=== PATIENT | female | born 1970 | race Caucasian/White ===

== ENCOUNTER 2018-07-31 11:35 | Emergency (ER) | payer BC, OTHER ==
[2018-07-31 11:42] VITALS: RESP 20; TEMP 98.3
[2018-07-31] MEDS ORDERED: PROPARACAINE 0.5% OPHTH DROPS 15 ML BTL LEFT EYE STA (12:56)
[2018-07-31] MEDS ORDERED: KETOROLAC 30 MG/ML 1 ML VIAL IM STA (14:40)
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
[2018-07-31 15:10] VITALS: BP 108/78; PULSE 73
== END 2018-07-31 15:05 | disposition home or self-care (01) ==
LOC: EC 11:35
DX: S80.02XA Contusion of left knee, initial encounter (principal); S80.01XA Contusion of right knee, initial encounter; S40.021A Contusion of right upper arm, initial encounter; S05.02XA Injury of conjunctiva and corneal abrasion without foreign body, left eye, initial encounter; R51 Headache; F43.9 Reaction to severe stress, unspecified; J45.909 Unspecified asthma, uncomplicated; F41.0 Panic disorder [episodic paroxysmal anxiety]; F32.9 Major depressive disorder, single episode, unspecified; F17.200 Nicotine dependence, unspecified, uncomplicated; Z79.899 Other long term (current) drug therapy; Z79.1 Long term (current) use of non-steroidal anti-inflammatories (NSAID); Z88.6 Allergy status to analgesic agent; Z88.5 Allergy status to narcotic agent; Z88.1 Allergy status to other antibiotic agents; Z88.2 Allergy status to sulfonamides; Z88.8 Allergy status to other drugs, medicaments and biological substances; Y04.0XXA Assault by unarmed brawl or fight, initial encounter
CPT/HCPCS: 99283; 96372; J1885

== ENCOUNTER 2018-11-21 12:55 | Emergency (ER) | payer OTHER ==
[2018-11-21 13:26] VITALS: BP 114/75; PULSE 79; RESP 18; TEMP 97.6
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
[2018-11-21 14:52] LABS: Appearance,Urine Cloudy (Clear); Bacteria,Urine Rare /hpf; Bilirubin,Urine Negative (Negative); Blood,Urine Small (Negative); Budding Yeast,Urine Moderate /hpf; Color,Urine Yellow; Glucose,Urine (UA) Negative (Negative); Ketones,Urine Negative (Negative); Leukocyte Esterase,Urine Large (Negative); Nitrite,Urine Positive (Negative); Protein,Urine 1+ (Negative); RBC,Urine 16 /hpf (0-5); Specific Gravity,Urine 1.013 (1.001-1.035); Squamous Epithelial Cell,Urine 11 /hpf (0-4); Urobilinogen,Urine <2.0 mg/dL (<2.0)
== END 2018-11-21 15:34 | disposition home or self-care (01) ==
LOC: EC 12:55
DX: S60.221A Contusion of right hand, initial encounter (principal); N39.0 Urinary tract infection, site not specified; J45.909 Unspecified asthma, uncomplicated; G40.909 Epilepsy, unspecified, not intractable, without status epilepticus; F32.9 Major depressive disorder, single episode, unspecified; F41.0 Panic disorder [episodic paroxysmal anxiety]; Z87.891 Personal history of nicotine dependence; Z79.899 Other long term (current) drug therapy; Z79.1 Long term (current) use of non-steroidal anti-inflammatories (NSAID); Z88.1 Allergy status to other antibiotic agents; Z88.5 Allergy status to narcotic agent; Z88.6 Allergy status to analgesic agent; W50.0XXA Accidental hit or strike by another person, initial encounter; Y92.89 Other specified places as the place of occurrence of the external cause
CPT/HCPCS: 81001; 81025; 87086; 99283

== ENCOUNTER 2019-01-26 19:42 | Emergency (ER) | payer OTHER ==
[2019-01-26 20:01] VITALS: BP 124/76; PULSE 91; RESP 16; TEMP 98.9
[2019-01-26] MEDS ORDERED: KETOROLAC 30 MG/ML 1 ML VIAL IM STA (20:27)
[2019-01-26] MEDS ORDERED: DIPH,PERTUS(ACELL)TETVAC-LF 0.5 ML VIAL IM ONE (20:27)
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
[2019-01-26] MEDS ORDERED: KETOROLAC 60 MG/2 ML VIAL IM STA (21:47)
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
== END 2019-01-26 22:22 | disposition home or self-care (01) ==
LOC: EC 19:42
DX: S01.512A Laceration without foreign body of oral cavity, initial encounter (principal); M25.511 Pain in right shoulder; J45.909 Unspecified asthma, uncomplicated; G40.909 Epilepsy, unspecified, not intractable, without status epilepticus; F41.9 Anxiety disorder, unspecified; F32.9 Major depressive disorder, single episode, unspecified; Z87.891 Personal history of nicotine dependence; Z79.1 Long term (current) use of non-steroidal anti-inflammatories (NSAID); Z79.899 Other long term (current) drug therapy; Z88.6 Allergy status to analgesic agent; Z88.5 Allergy status to narcotic agent; Z88.1 Allergy status to other antibiotic agents; Z88.2 Allergy status to sulfonamides; Z23 Encounter for immunization; Y04.8XXA Assault by other bodily force, initial encounter
CPT/HCPCS: 73030; 72125; 70486; 70450; 90715; 99284; 96372; 90471; J1885

== ENCOUNTER → 2020-04-30 | Outpatient (CLI) | payer OTHER ==
--- NOTE | 2020-04-30 09:03 | US ---
EXAMINATION TYPE: US abdomen complete DATE OF EXAM: 04/30/2020 COMPARISON: NONE CLINICAL HISTORY: 49-year-old female R10.11 right upper quadrant pain. Abdominal bloating; patient st ated has stomach ulcers, diarrhea and constipation TECHNIQUE: Multiple sonographic images of the abdomen are obtained. FINDINGS: EXAM MEASUREMENTS: Liver Length: 15.9 cm Gallbladder Wall: 0.3 cm CBD: 6.5 mm Spleen: 9.7 cm Right Kidney: 10.1 x 4.7 x 4.0 cm Left Kidney: 10.1 x 6.2 x 5.3 cm Pancreas: Suboptimal visualization of the pancreatic tail due to shadowing from bowel gas. Visualized portions show no gross abnormal Liver: Very slightly echogenic and slightly coarsened echotexture. No focal lesion seen. Gallbladder : wnl Evidence for sonographic Mcgowan's sign: no CBD: Borderline to mildly dilated Spleen: wnl Kidneys: No hydronephrosis. Upper IVC: wnl Abd Aorta: size is wnl, irregular intimal wall thickening and calcification is noted mid and distall y compatible with atherosclerosis. IMPRESSION: 1. Bile duct is borderline to mildly dilated at 6.5 mm. Correlate with alkaline phosphatase and bili levels to exclude early biliary obstruction. 2. Suspect mild fatty infiltration of the liver.
== END | disposition home or self-care (01) ==
LOC: RADUSWWP 06:57
PROVIDERS: ATTEND Internal Medicine
DX: R10.11 Right upper quadrant pain (principal)
CPT/HCPCS: 76700

== ENCOUNTER → 2020-07-10 | Outpatient (CLI) | payer OTHER ==
--- NOTE | 2020-07-16 10:01 | MM ---
Reason for exam: screening (asymptomatic). Last mammogram was performed 7 years and 1 month ago. History: Patient has history of other cancer at age 21. Family history of premenopausal breast cancer in sister at age 43 and breast cancer in maternal grandmother. Benign US left guided VAD of the left breast, March 09, 2011. Physical Findings: A clinical breast exam by your physician is recommended on an annual basis and results should be correlated with mammographic findings. MG Screening Mammo w CAD Bilateral CC and MLO view(s) were taken. Prior study comparison: June 18, 2013, bilateral digital screening mammo w/CAD. The breast tissue is heterogeneously dense. This may lower the sensitivity of mammography. No significant changes when compared with prior studies. ASSESSMENT: Benign, BI-RAD 2 RECOMMENDATION: Routine screening mammogram of both breasts in 1 year.
== END | disposition home or self-care (01) ==
LOC: RADMAMWWP 06:58
PROVIDERS: ATTEND Internal Medicine
DX: Z12.31 Encounter for screening mammogram for malignant neoplasm of breast (principal)
CPT/HCPCS: 77067

== ENCOUNTER → 2020-07-24 | Outpatient (CLI) | payer OTHER ==
--- NOTE | 2020-07-24 09:55 | NM ---
Nuclear medicine hepatobiliary scan. HISTORY: Pain. DOSAGE: The patient seated 8 ounces of ensure plus and 4.8 mCi of Technetium 99m Choletec. FINDINGS: There is normal hepatic extraction. The gallbladder is seen by 35 minutes. There is bilia ry to bowel clearance by 50 minutes. Ejection fraction is 86%. IMPRESSION: 1. No diagnostic evidence of disc. 2. Ejection fraction of 86% can occasionally be associated with hyperdynamic gallbladder.
== END | disposition home or self-care (01) ==
LOC: RADNMMAIN 06:53
PROVIDERS: ATTEND Internal Medicine
DX: R10.11 Right upper quadrant pain (principal)
CPT/HCPCS: 78226; A9537

== ENCOUNTER → 2020-10-06 | Outpatient (CLI) | payer OTHER ==
[2020-10-06 09:57] LABS: Basophils % (A) 0 %; Eosinophils # (A) 0.2 k/uL (0-0.7); Eosinophils % (A) 3 %; HCT 42.1 % (34.0-46.0); Lymphocytes # (A) 1.9 k/uL (1.0-4.8); Lymphocytes % (A) 26 %; MCHC 33.3 g/dL (31.0-37.0); MCV 96.1 fL (80.0-100.0); Mean Platelet Volume 6.7; Monocytes # (A) 0.3 k/uL (0-1.0); Monocytes % (A) 4 %; Neutrophils # (A) 4.8 k/uL (1.3-7.7); Neutrophils % (A) 67 %; Platelet Count 287 k/uL (150-450); RBC 4.38 m/uL (3.80-5.40); RDW 13.1 % (11.5-15.5); WBC 7.2 k/uL (3.8-10.6)
[2020-10-06 15:54] LABS: African American GFR (CKD) 85.8 (60.0-200.0); Albumin 4.5 g/dL (3.80-4.90); Albumin/Globulin Ratio 2.37 (1.60-3.17); Anion Gap 4.1 mmol/L (4.00-12.00); BUN/Creat Ratio 8.89 Ratio (12.00-20.00); Calcium 9.7 mg/dL (8.7-10.3); Carbon Dioxide 25.9 mmol/L (21.6-31.8); Chol/HDL Ratio 5.07; Globulin 1.9 g/dL (1.6-3.3); LDL Cholesterol,Calculated 170.6 mg/dL (0.0-131.0); Potassium 4.4 mmol/L (3.5-5.5); T4, Free (Free Thyroxine) 0.8 ng/dL (0.80-1.80); Total Bilirubin 0.4 mg/dL (0.2-1.2); Total Protein 6.4 g/dL (6.2-8.2); VLDL Calculation 53.4 mg/dL (5.00-40.00)
[2020-10-06 17:43] LABS: Lithium 0.6 mmol/L (0.5-1.2)
[2020-10-06 18:46] LABS: Hemoglobin A1C 5.2 % (4.0-6.0)
== END | disposition home or self-care (01) ==
LOC: LABWHC1 09:09
PROVIDERS: ATTEND Nurse Practitioner Psychiatric/Mental Health
DX: F31.5 Bipolar disorder, current episode depressed, severe, with psychotic features (principal); F43.10 Post-traumatic stress disorder, unspecified
CPT/HCPCS: 36415; 80053; 80061; 80178; 83036; 84439; 84443; 85025

== ENCOUNTER → 2020-11-10 | Outpatient (CLI) | payer OTHER ==
--- NOTE | 2020-11-10 15:31 | XR ---
EXAMINATION TYPE: XR chest 2V DATE OF EXAM: 11/10/2020 COMPARISON: Chest x-ray 04/29/2014 HISTORY: J 44.9, dyspnea and shortness of breath TECHNIQUE: Frontal and lateral views of the chest are obtained. FINDINGS: There is no focal air space opacity, pleural effusion, or pneumothorax seen. The cardiac silhouette size is within normal limits. The osseous structures are intact, there is thoracic spond ylosis. IMPRESSION: No acute cardiopulmonary process.
[2020-11-10 18:58] LABS: Basophils # (A) 0.03 X 10*3/uL (0.00-0.10); Basophils % (A) 0.4 %; Eosinophils # (A) 0.15 X 10*3/uL (0.04-0.35); Eosinophils % (A) 2.2 %; HCT 40.5 % (37.2-46.3); HGB 13.3 g/dL (12.0-15.0); Lymphocytes # (A) 1.98 X 10*3/uL (0.90-5.00); Lymphocytes % (A) 29.6 %; MCH 32.5 pg (27.0-32.0); MCHC 32.8 g/dL (32.0-37.0); Mean Platelet Volume 9.9 fL (9.5-12.2); Monocytes # (A) 0.32 X 10*3/uL (0.20-1.00); Monocytes % (A) 4.8 %; Neutrophils # (A) 4.19 X 10*3/uL (1.80-7.70); Neutrophils % (A) 62.7 %; Platelet Count 263 X 10*3/uL (140-440); RBC 4.09 X 10*6/uL (4.10-5.20); RDW 13.8 % (11.5-14.5); WBC 6.69 X 10*3/uL (4.50-10.00)
[2020-11-11 10:29] LABS: Alt. alternata IgE Class CLASS 0; Alternaria alternata IgE <0.10 kU/L (<0.10); Asperg. fumagatus IgE <0.10 kU/L (<0.10); Asperg. fumagatus IgE Class CLASS 0; Candida albicans IgE Class CLASS 0; Clad herbarum IgE <0.10 kU/L (<0.10); Clad herbarum IgE Class CLASS 0; Latex IgE Class CLASS 0; Mucor racemosus IgE <0.10 kU/L (<0.10); Mucor racemosus IgE Class CLASS 0; Penicillium chrysogenum IgE <0.10 kU/L (<0.10); Penicillium chrysogenum IgE Cl CLASS 0
[2020-11-12 09:28] LABS: Alpha 1 Anti-Trypsin 97 mg/dL (90 - 200); Alpha-1-Antitrypsin Phenotype MS
== END | disposition home or self-care (01) ==
LOC: LABWHC1 13:08
PROVIDERS: ATTEND Internal Medicine Sleep Medicine
DX: J44.9 Chronic obstructive pulmonary disease, unspecified (principal); E88.01 Alpha-1-antitrypsin deficiency; B44.81 Allergic bronchopulmonary aspergillosis
CPT/HCPCS: 36415; 71046; 82103; 82104; 85025; 86003; 86317

== ENCOUNTER 2020-12-15 08:05 | Emergency (ER) | payer OTHER ==
[2020-12-15 08:11] VITALS: RESP 18
[2020-12-15] MEDS ORDERED: guaiFENesin-DM 600/30MG 1 EACH TAB.ER.12H PO STA (08:38)
--- NOTE | 2020-12-15 08:40 | ED ---
URI HPI - General Chief Complaint: Upper Respiratory Infection Stated Complaint: SOB,Cough,Fever Time Seen by Provider: 12/15/20 08:21 Source: patient Mode of arrival: wheelchair Limitations: no limitations - History of Present Illness Initial Comments: 50 year-old female patient presents to the emergency department for evaluation of cough, shortness of breath, fevers, and nasal congestion. Patient states that symptoms started 2 days ago and have been worsening. Fevers have been around 100F. States she isn't taking Tylenol no other medications. 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 She has not yet been vaccinated for COVID-19. She does report nausea and vomiting. Denies any diarrhea. Patient denies any recent rash, chest pain, abdominal pain, back pain, numbness, tingling, dizziness, weakness, hematuria, dysuria, urinary urgen cy, urinary frequency, headache, visual changes, or any other complaints. - Related Data Home Medications Medication Instructions Recorded Confirmed Desvenlafaxine [Pristiq ER] 100 mg PO DAILY 07/31/18 12/15/20 [place] Carbonate [[place] 900 mg PO DAILY 07/31/18 12/15/20 Carbonate ER] Albuterol Sulfate [Proair Hfa] 1 puff INHALATION RT-Q4H PRN 12/15/20 12/15/20 Famotidine 20 mg PO DAILY 12/15/20 12/15/20 Fluticasone/Umeclidin/Vilanter 1 puff INHALATION RT-DAILY 12/15/20 12/15/20 [Trelerigoberto Ellipta 200-62.5-25] Oxybutynin Chloride [Ditropan XL] 10 mg PO DAILY 12/15/20 12/15/20 Topiramate [Trokendi Xr] 200 mg PO DAILY 12/15/20 12/15/20 guanFACINE [Tenex] 1 mg PO BID 12/15/20 12/15/20 Allergies Allergy/AdvReac Type Severity Reaction Status Date / Time hydrocodone bitartrate Allergy Unknown Verified 12/15/20 09:42 [From [place]] hydromorphone HCl Allergy Unknown Verified 12/15/20 09:42 [From Dilaudid] morphine Allergy Unknown Verified 12/15/20 09:42 nitrofurantoin Allergy Unknown Verified 12/15/20 09:42 [From Macrobid] nitrofurantoin Allergy Unknown Verified 12/15/20 09:42 macrocrystalline [From Macrobid] oxycodone HCl [From Percocet] Allergy Unknown Verified 12/15/20 09:42 Sulfa (Sulfonamide Allergy Unknown Verified 12/15/20 09:42 Antibiotics) Review of Systems ROS Statement: Those systems with pertinent positive or pertinent negative responses have been documented in the HPI. ROS Other: All systems not noted in ROS Statement are negative. Past Medical History Past Medical History: Asthma, Seizure Disorder Additional Past Medical History / Comment(s): Alpha 1 antitrypsin disease; immunodeficiency History of Any Multi-Drug Resistant Organisms: None Reported Past Surgical History: Bladder Surgery, Breast Surgery, Hysterectomy Past Psychological History: Anxiety, Depression, Panic Disorder Smoking Status: Former smoker Past Alcohol Use History: Rare Past Drug Use History: Marijuana General Exam Limitations: no limitations General appearance: alert, in no apparent distress, other (This is a well- developed, well-nourished adult female patient in no acute distress. Vital signs upon presentation are temperature 97.4F, pulse 74, respirations 18, blood pressure 120/83, pulse ox 100% on room air.) Eye exam: Present: normal appearance, PERRL, EOMI. Absent: scleral icterus, conjunctival injection, periorbital swelling ENT exam: Present: normal exam, normal oropharynx, mucous membranes moist Respiratory exam: Present: normal lung sounds bilaterally. Absent: respiratory distress, wheezes, rales, rhonchi, stridor Cardiovascular Exam: Present: regular rate, normal rhythm, normal heart sounds. Absent: systolic murmur, diastolic murmur, rubs, gallop, clicks GI/Abdominal exam: Present: soft, normal bowel sounds. Absent: distended, tenderness, guarding, rebound, rigid Neurological exam: Present: alert, oriented X3, CN II-XII intact Psychiatric exam: Present: normal affect, normal mood Skin exam: Present: warm, dry, intact, normal color. Absent: rash Course Vital Signs 12/15/20 12/15/20 12/15/20 08:09 09:11 10:11 Temperature 97.4 F L 97.9 F Pulse Rate 74 87 Respiratory 18 18 18 Rate Blood Pressure 120/83 127/108 O2 Sat by Pulse 100 99 Oximetry 12/15/20 11:00 Temperature Pulse Rate 87 Respiratory 18 Rate Blood Pressure 131/102 O2 Sat by Pulse 99 Oximetry Medical Decision Making - Medical Decision Making 50-year-old female patient presents to the emergency department today for evaluation of cough and shortness of breath. Physical examination is unremarkable. She is coughing. Lungs are clear to auscultation. She tested positive for Covid. Chest x-ray was negative. Patient does have history of immune deficiency I discussed this with her physician Dr. Estevez who thinks it is a good idea for her to receive bamlanivimab. I did discuss the medication with the patient, went over risks versus benefits. She does agree to receive the medication. She will be discharged home to follow-up with primary care ph ysician for recheck in 1-2 days. Return parameters discussed in detail. She verbalizes understanding and agrees with this plan. My attending is Dr. Ace. - Lab Data Lab Results 12/15/20 Range/Units 09:11 Coronavirus (PCR) Detected A (Not Detectd) - Radiology Data Radiology results: report reviewed, image reviewed One view x-ray of the chest is obtained. Report was reviewed in its entirety. Impression by Dr. Aburto shows no acute process. Disposition Clinical Impression: COVID-19 Disposition: HOME SELF-CARE Condition: Good Instructions (If sedation given, give patient instructions): Coronavirus Disease 2019 (COVID-19) Additional Instructions: Increase fluids. Rest. Follow-up with your primary care physician for recheck in 1-2 days. Return to the emergency department for any new, worsening, or concerning symptoms. Is patient prescribed a controlled substance at d/c from ED?: No Referrals: Marjorie Meehan MD [Primary Care Provider] - 1-2 days
--- NOTE | 2020-12-15 09:34 | XR ---
EXAMINATION TYPE: XR chest 1V DATE OF EXAM: 12/15/2020 COMPARISON: Prior chest x-ray 11/10/2020 HISTORY: Cough and shortness of breath TECHNIQUE: Single frontal view of the chest is obtained. FINDINGS: There is no focal air space opacity, pleural effusion, or pneumothorax seen. The cardiac silhouette size is within normal limits. The osseous structures are intact. IMPRESSION: No acute process.
[2020-12-15] MEDS ORDERED: LORazepam 1 MG TAB PO STA (09:58)
[2020-12-15 10:31] VITALS: TEMP 97.9
[2020-12-15] MEDS ORDERED: BAMLANIVIMAB 700 MG in SODIUM CHLORIDE 0.9% 50 ML IVPB ONE (11:00)
[2020-12-15 13:40] VITALS: BP 114/83; PULSE 78
== END 2020-12-15 13:13 | disposition home or self-care (01) ==
LOC: EC 08:05
DX: U07.1 COVID-19 (principal); F32.9 Major depressive disorder, single episode, unspecified; J45.909 Unspecified asthma, uncomplicated; Z79.899 Other long term (current) drug therapy; Z87.891 Personal history of nicotine dependence; F41.9 Anxiety disorder, unspecified; F12.90 Cannabis use, unspecified, uncomplicated
CPT/HCPCS: 87635; 71045; 99285; 96374; Q0239

== ENCOUNTER → 2021-04-17 | Outpatient (CLI) | payer OTHER | END | disposition home or self-care (01) | LOC: LABWHC1 09:39 | PROVIDERS: ATTEND Nurse Practitioner Psychiatric/Mental Health | DX: F31.5 Bipolar disorder, current episode depressed, severe, with psychotic features (principal) | CPT/HCPCS: 36415; 80178 ==

== ENCOUNTER → 2021-10-01 | Outpatient (CLI) | payer OTHER | END | disposition home or self-care (01) | LOC: LABWHC1 12:38 | PROVIDERS: ATTEND Internal Medicine | DX: R05.9 Cough, unspecified (principal); R52 Pain, unspecified | CPT/HCPCS: U0003; C9803 ==

== ENCOUNTER 2022-05-21 09:55 | Emergency (ER) | payer OTHER ==
[2022-05-21 10:01] VITALS: TEMP 97.7
[2022-05-21] MEDS ORDERED: SODIUM CHLORIDE 0.9% 1,000 ML IV STA (10:12)
[2022-05-21] MEDS ORDERED: KETOROLAC 15 MG/ML 1 ML VIAL IVP STA (10:12)
--- NOTE | 2022-05-21 10:24 | ED ---
URI HPI - General Chief Complaint: Upper Respiratory Infection Stated Complaint: Cough,Fever, Vomiting Time Seen by Provider: 05/21/22 10:06 Source: patient, RN notes reviewed Mode of arrival: ambulatory Limitations: no limitations - History of Present Illness Initial Comments: Patient is a 51-year-old female presents the emergency room with co mplaints of "being very ill". She is complaining of a severe cough causing vomiting along with generalized body aches, headaches and fevers which she reports a T-max last night of 102.3. She states that she took a home COVID test which was negative. She notes that she was around her sister who was recently ill and approximately 24-48 hours later she began getting out. She states that her cough is causing her ribs to her but she denies any typical chest pain or shortness of breath not directly related to cough. She denies any vomiting not related to coughing as well. She denies any abdominal pain, diarrhea, fevers today or chills. She is past medical history significant for seizures, asthma without recent exacerbation and alpha-1 antitrypsin deficiency. She reports that she did receive her initial Covid vaccines but has not received any boosters. - Related Data Home Medications Medication Instructions Recorded Confirmed Desvenlafaxine [Pristiq ER] 100 mg PO DAILY 07/31/18 12/15/20 [place] Carbonate [[place] 900 mg PO DAILY 07/31/18 12/15/20 Carbonate ER] Albuterol Sulfate [Proair Hfa] 1 puff INHALATION RT-Q4H PRN 12/15/20 12/15/20 Famotidine 20 mg PO DAILY 12/15/20 12/15/20 Fluticasone/Umeclidin/Vilanter 1 puff INHALATION RT-DAILY 12/15/20 12/15/20 [Trelegy Ellipta 200-62.5-25] Oxybutynin Chloride [Ditropan XL] 10 mg PO DAILY 12/15/20 12/15/20 Topiramate [Trokendi Xr] 200 mg PO DAILY 12/15/20 12/15/20 guanFACINE [Tenex] 1 mg PO BID 12/15/20 12/15/20 Previous Rx's Medication Instructions Recorded Nirmatrelvir/Ritonavir [Paxlovid 1 each PO BID 5 Days #10 tab 05/21/22 2X150 mg-100 mg (Eua)] Allergies Allergy/AdvReac Type Severity Reaction Status Date / Time hydrocodone bitartrate Allergy Unknown Verified 05/21/22 10:01 [From [place]] hydromorphone HCl Allergy Unknown Verified 05/21/22 10:01 [From Dilaudid] morphine Allergy Unknown Verified 05/21/22 10:01 nitrofurantoin Allergy Unknown Verified 05/21/22 10:01 [From Macrobid] nitrofurantoin Allergy Unknown Verified 05/21/22 10:01 macrocrystalline [From Macrobid] oxycodone HCl [From Percocet] Allergy Unknown Verified 05/21/22 10:01 Sulfa (Sulfonamide Allergy Unknown Verified 05/21/22 10:01 Antibiotics) Review of Systems ROS Statement: Those systems with pertinent positive or pertinent negative responses have been documented in the HPI. ROS Other: All systems not noted in ROS Statement are negative. Past Medical History Past Medical History: Asthma, Seizure Disorder Additional Past Medical History / Comment(s): Alpha 1 antitrypsin disease; immunodeficiency History of Any Multi-Drug Resistant Organisms: None Reported Past Surgical History: Bladder Surgery, Breast Surgery, Hysterectomy Past Psychological History: Anxiety, Depression, Panic Disorder Smoking Status: Current every day smoker Past Alcohol Use History: Rare Past Drug Use History: Marijuana General Exam General appearance: alert, in no apparent distress Head exam: Present: atraumatic, normocephalic, normal inspection Eye exam: Present: normal appearance, PERRL, EOMI. Absent: scleral icterus, conjunctival injection, periorbital swelling ENT exam: Present: normal exam, mucous membranes moist Neck exam: Present: normal inspection. Absent: tenderness, lymphadenopathy Respiratory exam: Present: normal lung sounds bilaterally. Absent: respiratory distress, wheezes, rales, rhonchi, stridor Cardiovascular Exam: Present: regular rate, normal rhythm, normal heart sounds. Absent: systolic murmur, diastolic murmur, rubs, gallop, clicks GI/Abdominal exam: Present: soft, normal bowel sounds. Absent: distended, tenderness, guarding, rebound, rigid Extremities exam: Present: normal inspection, full ROM. Absent: pedal edema, joint swelling Back exam: Present: normal inspection Neurological exam: Present: alert, oriented X3, CN II-XII intact Psychiatric exam: Present: anxious, other (tearful) Skin exam: Present: warm, dry, intact, normal color. Absent: rash Course Vital Signs 05/21/22 09:56 Temperature 97.7 F Pulse Rate 80 Respiratory 26 H Rate Blood Pressure 150/87 O2 Sat by Pulse 99 Oximetry Medical Decision Making - Medical Decision Making 51-year-old female presenting to the emergency room with complaints of cough, fevers and body aches ongoing for 24 hours. We will check COVID test. Vital signs stable and exam stable no indication for any diagnostic testing or other laboratory studies at this time. Will give IV fluid bolus along with Toradol for pain and monitor response. IV fluids tolerated well. Headache improved with Toradol. So some generalized pain but declines any further analgesic need. Covid test positive. Covid parameters regarding antivirals, quarantine and symptomatic management reviewed with patient. Will discharge home. Case discussed with Dr. Khan. - Lab Data Lab Results 05/21/22 Range/Units 10:14 Coronavirus (PCR) Detected A (Not Detectd) Disposition Clinical Impression: COVID-19 Disposition: HOME SELF-CARE Condition: Stable Instructions (If sedation given, give patient instructions): COVID-19 (Coronavirus Disease 2019) (ED) Additional Instructions: Please quarantine for 5 days after testing positive and restart quarantine if symptoms worsen. Please utilize Tylenol as needed for fevers and pain. Taking vitamin C, Zinc, vitamin D 50 mcg, and melatonin may help symtpom recovery. Please return to the Emergency Department if symptoms worsen or any other concerns. Prescriptions: Nirmatrelvir/Ritonavir [Paxlovid 2X150 mg-100 mg (Eua)] 1 each PO BID 5 Days #10 tab Is patient prescribed a controlled substance at d/c from ED?: No Referrals: Marjorie Meehan MD [Primary Care Provider] - 1-2 days Time of Disposition: 11:24
[2022-05-21 11:38] VITALS: BP 142/81; PULSE 84; RESP 18
== END 2022-05-21 11:38 | disposition home or self-care (01) ==
LOC: EC 09:55
DX: U07.1 COVID-19 (principal); J45.909 Unspecified asthma, uncomplicated; F17.200 Nicotine dependence, unspecified, uncomplicated; Z88.5 Allergy status to narcotic agent; Z88.3 Allergy status to other anti-infective agents; Z88.2 Allergy status to sulfonamides; Z88.8 Allergy status to other drugs, medicaments and biological substances
CPT/HCPCS: 87635; 99284; 96374; 96361; J1885

== ENCOUNTER → 2023-02-10 | Outpatient (CLI) | payer OTHER | END | disposition home or self-care (01) | LOC: LABWHC1 10:13 | PROVIDERS: ATTEND Registered Nurse | DX: F31.5 Bipolar disorder, current episode depressed, severe, with psychotic features (principal); Z79.899 Other long term (current) drug therapy; R94.31 Abnormal electrocardiogram [ECG] [EKG]; R00.1 Bradycardia, unspecified | CPT/HCPCS: 93005 ==

== ENCOUNTER 2023-10-27 10:25 | Emergency (ER) | payer OTHER ==
[2023-10-27 11:01] VITALS: PULSE 78; RESP 16
[2023-10-27 11:16] LABS: Amphetamine Screen,Urine Not Detected (NotDetected); Barbiturate Screen,Urine Not Detected (NotDetected); Benzodiazepines Screen,Urine Not Detected (NotDetected); Cocaine Screen,Urine Not Detected (NotDetected); Methadone Screen, Urine Not Detected (NotDetected); Opiate Screen,Urine Not Detected (NotDetected); Oxycodone Screen, Urine Not Detected (NotDetected); Phencyclidine Screen,Urine Not Detected (NotDetected); Tricyclic Antidepressant,Urine Detected (NotDetected); Urn Cannabinoid Scrn Detected (NotDetected)
--- NOTE | 2023-10-27 11:34 | ED ---
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 Patient was found in her car having abnormal behavior. Patient would not admit to anything at this point. Patient does admit to smoking something she states that she uses marijuana. Patient denies any chest pain shortness of breath headache dizziness nausea vomit diarrhea constipation denies any focal weakness. Patient denies any alcohol use. - Related Data Home Medications Medication Instructions Recorded Confirmed Desvenlafaxine [Pristiq ER] 100 mg PO DAILY 07/31/18 12/15/20 [place] Carbonate [Piqua 900 mg PO DAILY 07/31/18 12/15/20 Carbonate ER] Albuterol Sulfate [Proair Hfa] 1 puff INHALATION RT-Q4H PRN 12/15/20 12/15/20 Famotidine 20 mg PO DAILY 12/15/20 12/15/20 Fluticasone/Umeclidin/Vilanter 1 puff INHALATION RT-DAILY 12/15/20 12/15/20 [Trelegy Ellipta 200-62.5-25] Topiramate [Trokendi Xr] 200 mg PO DAILY 12/15/20 12/15/20 guanFACINE [Tenex] 1 mg PO BID 12/15/20 12/15/20 oxyBUTYnin chloride [Ditropan XL] 10 mg PO DAILY 12/15/20 12/15/20 Previous Rx's Medication Instructions Recorded Nirmatrelvir/Ritonavir [Paxlovid 1 each PO BID 5 Days #10 tab 05/21/22 2X150 mg-100 mg (Eua)] Allergies Allergy/AdvReac Type Severity Reaction Status Date / Time hydrocodone bitartrate Allergy Unknown Verified 10/27/23 10:41 [From [place]] hydromorphone HCl Allergy Unknown Verified 10/27/23 10:41 [From Dilaudid] morphine Allergy Unknown Verified 10/27/23 10:41 nitrofurantoin Allergy Unknown Verified 10/27/23 10:41 [From [place]ro[place]] nitrofurantoin Allergy Unknown Verified 10/27/23 10:41 macrocrystalline [From Macrobid] oxycodone HCl [From Percocet] Allergy Unknown Verified 10/27/23 10:41 Sulfa (Sulfonamide Allergy Unknown Verified 10/27/23 10:41 Antibiotics) Review of Systems ROS Statement: Those systems with pertinent positive or pertinent negative responses have been documented in the HPI. ROS Other: All systems not noted in ROS Statement are negative. Past Medical History Past Medical History: Asthma, Seizure Disorder Additional Past Medical History / Comment(s): Alpha 1 antitrypsin disease; immunodeficiency History of Any Multi-Drug Resistant Organisms: None Reported Past Surgical History: Bladder Surgery, Breast Surgery, Hysterectomy Past Psychological History: Anxiety, Depression, Panic Disorder Smoking Status: Current every day smoker Past Alcohol Use History: Rare Past Drug Use History: Marijuana General Exam Limitations: no limitations General appearance: alert, in no apparent distress Head exam: Present: atraumatic, normocephalic, normal inspection Eye exam: Present: normal appearance, PERRL, EOMI. Absent: scleral icterus, conjunctival injection, periorbital swelling ENT exam: Present: mucous membranes moist. Absent: normal oropharynx (Sores noted in the mouth) Neck exam: Present: normal inspection. Absent: tenderness, meningismus, lymphadenopathy Respiratory exam: Present: normal lung sounds bilaterally. Absent: respiratory distress, wheezes, rales, rhonchi, stridor Cardiovascular Exam: Present: regular rate, normal rhythm, normal heart sounds. Absent: systolic murmur, diastolic murmur, rubs, gallop, clicks Neurological exam: Present: alert, oriented X3, CN II-XII intact Skin exam: Present: warm, dry, intact, normal color. Absent: rash Course Vital Signs 10/27/23 10/27/23 10:33 11:49 Temperature 98.5 F 98 F Pulse Rate 78 78 Respiratory 16 16 Rate Blood Pressure 137/71 128/78 O2 Sat by Pulse 95 97 Oximetry Medical Decision Making - Medical Decision Making Was pt. sent in by a medical professional or institution (, PA, MAINTENANCE PLANNING CLERK, urgent care, hospital, or care home...) When possible be specific @ -No Did you speak to anyone other than the patient for history (EMS, parent, family, police, friend...)? What history was obtained from this source @ -Police and EMS providing prehospital complaint and findings Did you review nursing and triage notes (agree or disagree)? Why? @ -I reviewed and agree with nursing and triage notes Were old charts reviewed (outside hosp., previous admission, EMS record, old EKG, old radiological studies, urgent care reports/EKG's, care home records)? Report findings @ -No old charts were reviewed Differential Diagnosis (chest pain, altered mental status, abdominal pain women, abdominal pain men, vaginal bleeding, weakness, fever, dyspnea, syncope, headache, dizziness, GI bleed, back pain, seizure, CVA, palpatations, mental health, musculoskeletal)? @ -Drug ingestion, alcohol intoxication EKG interpreted by me (3pts min.). @ -As above X-rays interpreted by me (1pt min.). @ -None done CT interpreted by me (1pt min.). @ -None done U/S interpreted by me (1pt. min.). @ -None done What testing was considered but not performed or refused? (CT, X-rays, U/S, labs)? Why? @ -None What meds were considered but not given or refused? Why? @ -None Did you discuss the management of the patient with other professionals (professionals i.e. , PA, MAINTENANCE PLANNING CLERK, lab, RT, psych nurse, social work associate, master ocean, teacher, special officer, case monitor)? Give summary @ -No Was smoking cessation discussed for >3mins.? @ -No Was critical care preformed (if so, how long)? @ -No Were there social determinants of health that impacted care today? How? (Homelessness, low income, unemployed, alcoholism, drug addiction, transportation, low edu. Level, literacy, decrease access to med. care, fdc, rehab)? @ -No Was there de-escalation of care discussed even if they declined (Discuss DNR or withdrawal of care, Hospice)? DNR status @ -No What co-morbidities impacted this encounter? (DM, HTN, Smoking, COPD, CAD, Cancer, CVA, ARF, Chemo, Hep., AIDS, mental health diagnosis, sleep apnea, morbid obesity)? @ -None Was patient admitted / discharged? Hospital course, mention meds given and route, prescriptions, significant lab abnormalities, going to OR and other pertinent info. @ -Patient does admit to smoking, patient is positive for TCA, marijuana. There is still concern about possible synthetic use. She has no focal weakness, she is awake and alert she does have some rhythmic movements, jerking behavior. Undiagnosed new problem with uncertain prognosis? @ -No Drug Therapy requiring intensive monitoring for toxicity (Heparin, Nitro, Insulin, Cardizem)? @ -No Were any procedures done? @ -No Diagnosis/symptom? @ -[Drug ingestion, use Acute, or Chronic, or Acute on Chronic? @ -Acute Uncomplicated (without systemic symptoms) or Complicated (systemic symptoms)? @ -[Uncomplicated Side effects of treatment? @ -[No Exacerbation, Progression, or Severe Exacerbation? @ -No Poses a threat to life or bodily function? How? (Chest pain, [place], [place], pneumonia, PE, COPD, DKA, ARF, appy, cholecystitis, CVA, Diverticulitis, Homicidal, Suicidal, threat to staff... and all critical care pts) @ -No - Lab Data Lab Results 10/27/23 Range/Units 10:51 Urine Opiates Screen Not Detected (NotDetected) Ur Oxycodone Screen Not Detected (NotDetected) Urine Methadone Screen Not Detected (NotDetected) Ur Barbiturates Screen Not Detected (NotDetected) U Tricyclic Antidepress Detected H (NotDetected) Ur Phencyclidine Scrn Not Detected (NotDetected) Ur Amphetamines Screen Not Detected (NotDetected) U Methamphetamines Scrn Not Detected (NotDetected) U Benzodiazepines Scrn Not Detected (NotDetected) Urine Cocaine Screen Not Detected (NotDetected) U Marijuana (THC) Screen Detected H (NotDetected) Disposition Clinical Impression: Drug use Disposition: HOME SELF-CARE Condition: Stable Additional Instructions: Please return to the Emergency Department if symptoms worsen or any other concerns. Is patient prescribed a controlled substance at d/c from ED?: No Referrals: Marjorie Meehan MD [Primary Care Provider] - 1-2 days Time of Disposition: 11:34
[2023-10-27 12:02] VITALS: BP 128/78; TEMP 98
== END 2023-10-27 11:49 | disposition home or self-care (01) ==
LOC: EC 10:25
DX: F19.90 Other psychoactive substance use, unspecified, uncomplicated (principal); J45.909 Unspecified asthma, uncomplicated; F41.9 Anxiety disorder, unspecified; F32.A Depression, unspecified; F17.200 Nicotine dependence, unspecified, uncomplicated; F12.90 Cannabis use, unspecified, uncomplicated; Z79.899 Other long term (current) drug therapy; Z79.51 Long term (current) use of inhaled steroids; Z88.5 Allergy status to narcotic agent; Z88.2 Allergy status to sulfonamides; Z88.8 Allergy status to other drugs, medicaments and biological substances
CPT/HCPCS: 80306; 99285

== ENCOUNTER 2023-11-04 12:22 | Emergency (ER) | payer OTHER ==
--- NOTE | 2023-11-04 12:25 | ED ---
Psych HPI - General Source: patient, family, RN notes reviewed Mode of arrival: ambulatory Limitations: no limitations <Allison Cervantes - Last Filed: 11/04/23 12:35> <Sharmila Goldman - Last Filed: 11/05/23 21:59> - General Chief Complaint: Psychiatric Symptoms Stated Complaint: Psychosis Time Seen by Provider: 11/04/23 12:24 - History of Present Illness Initial Comments: This is a 53 year old female who presents to the emergency department for a mental health evaluation. Family states that she is having a psychotic episode. She has been at [facility] twice in the last week for hallucinations. She was cleared medically, however family believes that there may be an interaction with her medication. Patient currently hyperventilating. (Allison Cervantes) 53-year-old female presents to the emergency department for mental health evaluation. Her boyfriend states that she has been hallucinating for the past week. She has had multiple mental health evaluations for this this week. Patient is very agitated and hyperventilating. (Sharmila Goldman) - Related Data Home Medications Medication Instructions Recorded Confirmed Famotidine 20 mg PO HS 12/15/20 11/04/23 Topiramate [Trokendi Xr] 200 mg PO HS 12/15/20 11/04/23 oxyBUTYnin chloride [Ditropan XL] 10 mg PO DAILY 12/15/20 11/04/23 Desvenlafaxine Succinate [Pristiq 50 mg PO DAILY 11/04/23 11/04/23 ER] [place] Carbonate [[place] 300 mg PO BID 11/04/23 11/04/23 Carbonate ER] Propranolol HCl 10 mg PO BID 11/04/23 11/04/23 QUEtiapine [SEROquel] 100 mg PO HS 11/04/23 11/04/23 Valbenazine Tosylate [Ingrezza] 60 mg PO HS 11/04/23 11/04/23 Allergies Allergy/AdvReac Type Severity Reaction Status Date / Time hydrocodone bitartrate Allergy Unknown Verified 11/04/23 14:43 [From [place]] hydromorphone HCl Allergy Unknown Verified 11/04/23 14:43 [From Dilaudid] morphine Allergy Unknown Verified 11/04/23 14:43 nitrofurantoin Allergy Unknown Verified 11/04/23 14:43 [From Macrobid] nitrofurantoin Allergy Unknown Verified 11/04/23 14:43 macrocrystalline [From Macrobid] oxycodone HCl [From Percocet] Allergy Unknown Verified 11/04/23 14:43 Sulfa (Sulfonamide Allergy Unknown Verified 11/04/23 14:43 Antibiotics) Review of Systems ROS Other: All systems not noted in ROS Statement are negative. <Allison Cervantes - Last Filed: 11/04/23 12:35> ROS Other: All systems not noted in ROS Statement are negative. <Sharmila Goldman - Last Filed: 11/05/23 21:59> ROS Statement: Those systems with pertinent positive or pertinent negative responses have been documented in the HPI. Past Medical History Past Medical History: Asthma, Seizure Disorder Additional Past Medical History / Comment(s): Alpha 1 antitrypsin disease; immunodeficiency History of Any Multi-Drug Resistant Organisms: None Reported Past Surgical History: Bladder Surgery, Breast Surgery, Hysterectomy Past Psychological History: Anxiety, Depression, Panic Disorder Smoking Status: Current every day smoker Past Alcohol Use History: Rare Past Drug Use History: Marijuana <Allison Cervantes - Last Filed: 11/04/23 12:35> General Exam <Allison Cervantes - Last Filed: 11/04/23 12:35> Limitations: altered mental status General appearance: other Head exam: Present: atraumatic, normocephalic, normal inspection Eye exam: Present: normal appearance, PERRL, EOMI. Absent: scleral icterus, conjunctival injection, periorbital swelling ENT exam: Present: normal exam, mucous membranes moist Neck exam: Present: normal inspection. Absent: tenderness, meningismus, lymphad enopathy Respiratory exam: Present: normal lung sounds bilaterally. Absent: respiratory distress, wheezes, rales, rhonchi, stridor Cardiovascular Exam: Present: regular rate, normal rhythm, normal heart sounds. Absent: systolic murmur, diastolic murmur, rubs, gallop, clicks GI/Abdominal exam: Present: soft. Absent: distended, tenderness, guarding, rebound, rigid Neurological exam: Present: alert, altered Psychiatric exam: Present: agitated Skin exam: Present: warm, dry, intact, normal color. Absent: rash <Sharmila Goldman - Last Filed: 11/05/23 21:59> - General Exam Comments Initial Comments: Visual Physical Exam Vital signs reviewed General: In distress Head: Normocephalic, atraumatic Eyes: PERRLA, EOMI ENT: Airway patent Chest: Nonlabored breathing Skin: No visual rash, normal skin tone Neuro: Alert and oriented 3 Musculoskeletal: No gross abnormalities (Allison Cervantes) Course Vital Signs 11/04/23 11/04/23 11/04/23 12:37 13:54 15:00 Temperature 97.6 F 98.8 F Pulse Rate 70 67 65 Respiratory 18 36 H 16 Rate Blood Pressure 147/68 112/75 110/60 O2 Sat by Pulse 99 100 98 Oximetry 11/05/23 11/05/23 11/05/23 01:31 01:44 17:13 Temperature 98.9 F Pulse Rate 105 H 60 74 Respiratory 18 16 18 Rate Blood Pressure 101/49 132/82 115/68 O2 Sat by Pulse 94 L 96 Oximetry Medical Decision Making <Allison Cervantes - Last Filed: 11/04/23 12:35> - Lab Data Result diagrams: 11/04/23 13:13 11/04/23 13:13 <Sharmila Goldman - Last Filed: 11/05/23 21:59> - Medical Decision Making I performed the QuickNote portion of this chart. Signed Allison Cervantes PA-C. (Allison Cervantes) Was pt. sent in by a medical professional or institution ([facility], BUSINESS ASSOCIATE, urgent care, hospital, or senior living...) When possible be specific @ -No Did you speak to anyone other than the patient for history (EMS, parent, family, police, friend...)? What history was obtained from this source @ -Patient's boyfriend present provided similar history of this patient Did you review nursing and triage notes (agree or disagree)? Why? @ -I reviewed and agree with nursing and triage notes Were old charts reviewed (outside hosp., previous admission, EMS record, old EKG, old radiological studies, urgent care reports/EKG's, senior living records)? Report findings @ -Records from [facility] were reviewed including medications Differential Diagnosis (chest pain, altered mental status, abdominal pain women, abdominal pain men, vaginal bleeding, weakness, fever, dyspnea, syncope, headache, dizziness, GI bleed, back pain, seizure, CVA, palpatations, mental health, musculoskeletal)? @ -Differential Mental Health Depression, anxiety, bipolar, psychosis, schizophrenia, borderline personality, situational depression, adjustment disorder, behavioral disorder, brain tumor, malingering, substance abuse, encephalopathy, medication reaction, dementia, hypothyroidism, degenerative neurologic disorder, lupus.... This is not meant to be all-inclusive list EKG interpreted by me (3pts min.). @ -None X-rays interpreted by me (1pt min.). @ -None done CT interpreted by me (1pt min.). @ -None done U/S interpreted by me (1pt. min.). @ -None done What testing was considered but not performed or refused? (CT, X-rays, U/S, labs)? Why? @ -None What meds were considered but not given or refused? Why? @ -None Did you discuss the management of the patient with other professionals (professionals i.e. , PA, BUSINESS ASSOCIATE, lab, RT, psych nurse, social sciences lecturer, metal framer, teacher, seaman officer, case hardener)? Give summary @ -No Was smoking cessation discussed for >3mins.? @ -No Was critical care preformed (if so, how long)? @ -No Were there social determinants of health that impacted care today? How? (Ho melessness, low income, unemployed, alcoholism, drug addiction, transportation, low edu. Level, literacy, decrease access to med. care, alf, rehab)? @ -No Was there de-escalation of care discussed even if they declined (Discuss DNR or withdrawal of care, Hospice)? DNR status @ -No What co-morbidities impacted this encounter? (DM, HTN, Smoking, COPD, CAD, Cancer, CVA, ARF, Chemo, Hep., AIDS, mental health diagnosis, sleep apnea, morbid obesity)? @ -None Was patient admitted / discharged? Hospital course, mention meds given and route, prescriptions, significant lab abnormalities, going to OR and other pertinent info. @ -53-year-old female presents to the emergency department for mental health evaluation. She is accompanied by her boyfriend. He reports that she has been increasingly agitated and hallucinating more over the past 1 week. Patient seems to be hallucinating here. Evaluated at [facility] for this twice. Laboratory studies obtained.CBC shows WBC 7.7, hemoglobin 12.1; normal coagulation studies; CMP shows sodium 138 potassium 3.9, creatinine 0.79, lithi um 0.5. Patient given 20 mg IM Geodon, resting comfortably in the room following this. Patient pending EPS evaluation. EPS evaluated patient next day recommend inpatient treatment for this patient. Undiagnosed new problem with uncertain prognosis? @ -No Drug Therapy requiring intensive monitoring for toxicity (Heparin, Nitro, Insulin, Cardizem)? @ -No Were any procedures done? @ -No Diagnosis/symptom? @ -Psychosis Acute, or Chronic, or Acute on Chronic? @ -Acute Uncomplicated (without systemic symptoms) or Complicated (systemic symptoms)? @ -Uncomplicated Side effects of treatment? @ -No Exacerbation, Progression, or Severe Exacerbation? @ -No Poses a threat to life or bodily function? How? (Chest pain, [place], [place], pneumonia, PE, COPD, DKA, ARF, appy, cholecystitis, CVA, Diverticulitis, Homicidal, Suicidal, threat to staff... and all critical care pts) @ -No (Sharmila Goldman) - Lab Data Lab Results 11/04/23 11/04/23 11/04/23 Range/Units 13:13 13:13 13:13 WBC 7.7 (3.8-10.6) k/uL RBC 3.82 (3.80-5.40) m/uL Hgb 12.1 (11.4-16.0) gm/dL Hct 36.4 (34.0-46.0) % MCV 95.2 (80.0-100.0) fL MCH 31.7 (25.0-35.0) pg MCHC 33.3 (31.0-37.0) g/dL RDW 14.4 (11.5-15.5) % Plt Count 344 (150-450) k/uL MPV 7.4 Neutrophils % 51 % Lymphocytes % 43 % Monocytes % 4 % Eosinophils % 1 % Basophils % 1 % Neutrophils # 3.9 (1.3-7.7) k/uL Lymphocytes # 3.3 (1.0-4.8) k/uL Monocytes # 0.3 (0-1.0) k/uL Eosinophils # 0.1 (0-0.7) k/uL Basophils # 0.0 (0-0.2) k/uL PT 10.2 (10.0-12.5) sec INR 0.9 (<1.2) APTT 25.7 (22.0-30.0) sec Sodium 138 (137-145) mmol/L Potassium 3.9 (3.5-5.1) mmol/L Chloride 115 H (98-107) mmol/L Carbon Dioxide 16 L (22-30) mmol/L Anion Gap 7 mmol/L BUN 5 L (7-17) mg/dL Creatinine 0.79 (0.52-1.04) mg/dL Est GFR (CKD-EPI)AfAm >90 (>60 ml/min/1.73 sqM) Est GFR (CKD-EPI)NonAf 85 (>60 ml/min/1.73 sqM) Glucose 102 H (74-99) mg/dL Calcium 9.5 (8.4-10.2) mg/dL Total Bilirubin 0.5 (0.2-1.3) mg/dL AST 42 H (14-36) U/L ALT 28 (4-34) U/L Alkaline Phosphatase 85 (38-126) U/L Total Protein 6.2 L (6.3-8.2) g/dL Albumin 3.8 (3.5-5.0) g/dL TSH (0.465-4.680) mIU/L Urine Color Urine Appearance (Clear) Urine pH (5.0-8.0) Ur Specific [place] (1.001-1.035) Urine Protein (Negative) Urine Glucose (UA) (Negative) Urine Ketones (Negative) Urine Blood (Negative) Urine Nitrite (Negative) Urine Bilirubin (Negative) Urine Urobilinogen (<2.0) mg/dL Ur Leukocyte Esterase (Negative) Urine RBC (0-5) /hpf Urine WBC (0-5) /hpf Ur Squamous Epith Cells (0-4) /hpf Urine Bacteria (None) /hpf Urine Mucus (None) /hpf Salicylates <1.0 mg/dL Urine Opiates Screen (NotDetected) Ur Oxycodone Screen (NotDetected) Urine Methadone Screen (NotDetected) Acetaminophen <10.0 ug/mL Ur Barbiturates Screen (NotDetected) U Tricyclic Antidepress (NotDetected) Ur Phencyclidine Scrn (NotDetected) Ur Amphetamines Screen (NotDetected) U Methamphetamines Scrn (NotDetected) U Benzodiazepines Scrn (NotDetected) [place] 0.5 mmol/L Urine Cocaine Screen (NotDetected) U Marijuana (THC) Screen (NotDetected) SARS-CoV-2 (PCR) (Not Detectd) 11/04/23 11/05/23 11/05/23 Range/Units 23:31 13:53 13:53 WBC (3.8-10.6) k/uL RBC (3.80-5.40) m/uL Hgb (11.4-16.0) gm/dL Hct (34.0-46.0) % MCV (80.0-100.0) fL MCH (25.0-35.0) pg MCHC (31.0-37.0) g/dL RDW (11.5-15.5) % Plt Count (150-450) k/uL MPV Neutrophils % % Lymphocytes % % Monocytes % % Eosinophils % % Basophils % % Neutrophils # (1.3-7.7) k/uL Lymphocytes # (1.0-4.8) k/uL Monocytes # (0-1.0) k/uL Eosinophils # (0-0.7) k/uL Basophils # (0-0.2) k/uL PT (10.0-12.5) sec INR (<1.2) APTT (22.0-30.0) sec Sodium (137-145) mmol/L Potassium (3.5-5.1) mmol/L Chloride (98-107) mmol/L Carbon Dioxide (22-30) mmol/L Anion Gap mmol/L BUN (7-17) mg/dL Creatinine (0.52-1.04) mg/dL Est GFR (CKD-EPI)AfAm (>60 ml/min/1.73 sqM) Est GFR (CKD-EPI)NonAf (>60 ml/min/1.73 sqM) Glucose (74-99) mg/dL Calcium (8.4-10.2) mg/dL Total Bilirubin (0.2-1.3) mg/dL AST (14-36) U/L ALT (4-34) U/L Alkaline Phosphatase (38-126) U/L Total Protein (6.3-8.2) g/dL Albumin (3.5-5.0) g/dL TSH 2.530 (0.465-4.680) mIU/L Urine Color Colorless Urine Appearance Cloudy H (Clear) Urine pH 6.5 (5.0-8.0) Ur Specific [place] 1.005 (1.001-1.035) Urine Protein Negative (Negative) Urine Glucose (UA) Negative (Negative) Urine Ketones Negative (Negative) Urine Blood Negative (Negative) Urine Nitrite Negative (Negative) Urine Bilirubin Negative (Negative) Urine Urobilinogen <2.0 (<2.0) mg/dL Ur Leukocyte Esterase Negative (Negative) Urine RBC 1 (0-5) /hpf Urine WBC 3 (0-5) /hpf Ur Squamous Epith Cells 29 H (0-4) /hpf Urine Bacteria Rare H (None) /hpf Urine Mucus Rare H (None) /hpf Salicylates mg/dL Urine Opiates Screen Not Detected (NotDetected) Ur Oxycodone Screen Not Detected (NotDetected) Urine Methadone Screen Not Detected (NotDetected) Acetaminophen ug/mL Ur Barbiturates Screen Not Detected (NotDetected) U Tricyclic Antidepress Not Detected (NotDetected) Ur Phencyclidine Scrn Not Detected (NotDetected) Ur Amphetamines Screen Not Detected (NotDetected) U Methamphetamines Scrn Not Detected (NotDetected) U Benzodiazepines Scrn Detected H (NotDetected) [place] mmol/L Urine Cocaine Screen Not Detected (NotDetected) U Marijuana (THC) Screen Detected H (NotDetected) SARS-CoV-2 (PCR) Not Detected (Not Detectd) Disposition <Allison Cervantes - Last Filed: 11/04/23 12:35> Is patient prescribed a controlled substance at d/c from ED?: No <Sharmila Goldman - Last Filed: 11/05/23 21:59> Clinical Impression: Acute psychosis Disposition: TRANSFER TO PSYCH HOSP/UNIT Condition: Stable Referrals: Marjorie Meehan MD [Primary Care Provider] - 1-2 days
[2023-11-04 13:32] LABS: Basophils % (A) 1 %; Eosinophils # (A) 0.1 k/uL (0-0.7); Eosinophils % (A) 1 %; HCT 36.4 % (34.0-46.0); HGB 12.1 gm/dL (11.4-16.0); Lymphocytes # (A) 3.3 k/uL (1.0-4.8); Lymphocytes % (A) 43 %; MCH 31.7 pg (25.0-35.0); MCHC 33.3 g/dL (31.0-37.0); MCV 95.2 fL (80.0-100.0); Mean Platelet Volume 7.4; Monocytes # (A) 0.3 k/uL (0-1.0); Monocytes % (A) 4 %; Neutrophils # (A) 3.9 k/uL (1.3-7.7); Neutrophils % (A) 51 %; Platelet Count 344 k/uL (150-450); RBC 3.82 m/uL (3.80-5.40); RDW 14.4 % (11.5-15.5); WBC 7.7 k/uL (3.8-10.6)
[2023-11-04 13:46] LABS: ALT 28 U/L (4-34); AST 42 U/L (14-36); Acetaminophen <10.0 ug/mL; African American GFR (CKD) >90 (>60 ml/min/1.73 sqM); Albumin 3.8 g/dL (3.5-5.0); Alkaline Phosphatase 85 U/L (38-126); Anion Gap 7 mmol/L; Blood Urea Nitrogen 5 mg/dL (7-17); Calcium 9.5 mg/dL (8.4-10.2); Carbon Dioxide 16 mmol/L (22-30); Chloride 115 mmol/L (98-107); Glucose 102 mg/dL (74-99); Lithium 0.5 mmol/L; Non-African American GFR(CKD) 85 (>60 ml/min/1.73 sqM); Potassium 3.9 mmol/L (3.5-5.1); Salicylate <1.0 mg/dL; Sodium 138 mmol/L (137-145); Total Bilirubin 0.5 mg/dL (0.2-1.3); Total Protein 6.2 g/dL (6.3-8.2)
[2023-11-04] MEDS: ZIPRASIDONE 20 MG VIAL IM STA (13:46)
[2023-11-04 13:47] LABS: INR 0.9 (<1.2); Partial Thromboplastin Time 25.7 sec (22.0-30.0); Prothrombin Time 10.2 sec (10.0-12.5)
[2023-11-04 23:55] LABS: Appearance,Urine Cloudy (Clear); Bacteria,Urine Rare /hpf; Bilirubin,Urine Negative (Negative); Blood,Urine Negative (Negative); Color,Urine Colorless; Glucose,Urine (UA) Negative (Negative); Ketones,Urine Negative (Negative); Leukocyte Esterase,Urine Negative (Negative); Mucus,Urine Rare /hpf; Nitrite,Urine Negative (Negative); PH, Urine 6.5 (5.0-8.0); Protein,Urine Negative (Negative); RBC,Urine 1 /hpf (0-5); Specific Gravity,Urine 1.005 (1.001-1.035); Squamous Epithelial Cell,Urine 29 /hpf (0-4); Urobilinogen,Urine <2.0 mg/dL (<2.0); WBC,Urine 3 /hpf (0-5)
[2023-11-05 00:28] LABS: Amphetamine Screen,Urine Not Detected (NotDetected); Barbiturate Screen,Urine Not Detected (NotDetected); Benzodiazepines Screen,Urine Detected (NotDetected); Cocaine Screen,Urine Not Detected (NotDetected); Methadone Screen, Urine Not Detected (NotDetected); Opiate Screen,Urine Not Detected (NotDetected); Oxycodone Screen, Urine Not Detected (NotDetected); Phencyclidine Screen,Urine Not Detected (NotDetected); Tricyclic Antidepressant,Urine Not Detected (NotDetected); Urn Cannabinoid Scrn Detected (NotDetected)
[2023-11-05] MEDS: LORazepam 1 MG TAB PO STA ×2 (02:23→11:46)
[2023-11-05] MEDS: ACETAMINOPHEN TAB 325 MG TAB PO STA (16:02)
[2023-11-06] MEDS: LORazepam 1 MG TAB PO STA (09:45)
[2023-11-07 07:58] LABS: Levetiracetam (Keppra) <1.0 ug/mL (3.0-60.0)
[2023-11-07 08:00] LABS: Topiramate 10.2 ug/mL (2.0-20.0)
[2023-12-12 16:08] VITALS: BP 149/90; PULSE 93; RESP 34; TEMP 98.1
== END 2023-11-06 10:00 ==
LOC: EC 12:22
DX: F29 Unspecified psychosis not due to a substance or known physiological condition (principal); F17.200 Nicotine dependence, unspecified, uncomplicated; F12.90 Cannabis use, unspecified, uncomplicated; Z88.2 Allergy status to sulfonamides; Z88.5 Allergy status to narcotic agent; Z88.8 Allergy status to other drugs, medicaments and biological substances; Z88.1 Allergy status to other antibiotic agents
CPT/HCPCS: 82075; 36415 ×2; 80053; 80201; 80177; 84443; 80178; 85025; 85610; 85730; 81001; 80306; 80143; 87635; 80179; 99285; 96372; J3486

== ENCOUNTER → 2024-07-09 | Outpatient (CLI) | payer OTHER ==
--- NOTE | 2024-07-09 12:32 | FL ---
Exam Date: 07/09/2024 11:46 AM. Modified barium swallow for dysphagia. Consistencies administered: Various consistency of barium. Fluoro time: 40 sec No images were sent to PACS. Please see speech pathology report. DAP: not reported mGym2 [facility], , 07/09/2024 12:30 PM
== END | disposition home or self-care (01) ==
LOC: RADFLMAIN 10:42
PROVIDERS: ATTEND Psychiatry & Neurology Neurology
DX: R13.10 Dysphagia, unspecified (principal)
CPT/HCPCS: 74230